=== PATIENT | female | born 1965 | race Caucasian/White ===

== ENCOUNTER → 2024-01-28 | Outpatient (CLI) | payer BC, SELFPAY ==
--- NOTE | 2024-01-28 14:22 | CT_ITS ---
STUDY: LOW DOSE CT LUNG CANCER SCREENING REASON FOR EXAM: Female, 58 years old. Lung cancer screening -- 40 pk yr hx; current smoker;asymptomatic RADIATION DOSAGE (If Supplied By Facility): CTDIvol = ( 2.01 ) mGy, DLP = ( 70.22 ) mGycm TECHNIQUE: No contrast was administered. Low dose technique was utilized (average mAS-38 and kVp 120). 1.25 mm axial source images with a slice interval of 1.25-mm were reconstructed in lung windows. 2.5 mm axial source images with a slice interval of 2.5-mm were reconstructed in lung windows. 5.0 mm axial source images with a slice interval of 5.0-mm were reconstructed in soft tissue windows. COMPARISON: Comparison is made with prior study dated December 07, 2005. Mildly enlarged thyroid gland. NODULES: There is a 3.7 mm partially calcified granuloma in the medial aspect of the lingular segment of the left upper lobe as seen on axial image #175. Emphysema: Hyperinflation. Mild degree of emphysematous changes. Endobronchial lesion: None Aorta: Minimal atherosclerotic plaque formation of the aortic arch. CORONARY ARTERIES: Coronary artery calcification is seen. Heart: Unremarkable Pulmonary artery: Unremarkable Mediastinal nodes: Small mediastinal lymph nodes. Other chest and abdominal findings: CT/Low Dose CT Lung Screening IMPRESSION: Lung-RADS category 2 - Continue annual screening with LDCT in 12 months. IMPORTANT NOTES FOR USE: ACR Lung-RADS Version 1.1 Assessment Categories Release Date: 2018 Category: Coded 0-4 bases on nodule(s) with highest degree of suspicion. Negative screen is defined as categories 1 and 2; a positive screen is defined as categories 3 and 4. Category 3 and 4A nodules that are unchanged on interval CT should be coded as category 2, and individuals returned to screening in 12 months. Category 4X: Category 3 or 4 nodules with additional imaging findings that increase the suspicion of lung cancer, such as spiculation, GGN that doubles in size in 1 year, enlarged lymph notes, etc. Category Modifiers: S (significant finding unrelated to lung cancer) Electronically Signed: Jhonatan Monzon MD at 15:19 EST ,
--- OUTSIDE RECORDS SUMMARY | 2024-01-28 22:55 | XMS RPT_ITS | CCD ---
Author Name Unknown Address [address] [place] [address] Organization [facility] Care Team Providers Care Power Generation Plant Operator Name Role Phone MansuraRafa brown Primary Care Provider Buster Salas MD Primary Care Provider Buster Salas MD Primary Care Provider Buster Salas MD Primary Care Provider [phone] Buster Salas MD Primary Care Provider KASSIE MACKAY Attending Unavailable BUSTER SALAS Primary Care Unavailable BUSTER SALAS Primary Care Unavailable BUSTER SALAS Primary Care Unavailable KASSIE MACKAY Attending Unavailable KASSIE MACKAY Attending Unavailable BUSTER SALAS Primary Care Unavailable KASSIE MACKAY Attending Unavailable BUSTER SALAS Primary Care Unavailable Medications Current Medications Medication Drug Class(es) Dates Sig (Normalized) Sig (Original) azithromycin 250 mg oral tablet (2 sources) Macrolide Antimicrobial Start: 12-20-2022 End: 12-25-2022 azithromycin (ZITHROMAX Z-JOSE F) 250 mg tablet Indications: Sinobronchitis Take 2 tablets day one, then, 1 tablet daily until gone. 6 tablet 0 12/20/2022 12/25/2022 Active Completed/Discontinued Medications Medication Drug Class(es) Dates Sig (Normalized) Sig (Original) benzonatate 100 mg oral capsule (13 sources) Non-narcotic Antitussive Start: 07-27-2022 take 1 capsule by mouth three times daily as needed for cough benzonatate (TESSALON PERLES) 100 mg capsule Indications: Bronchitis Take 1 capsule by mouth three times daily as needed for cough. 20 capsule 1 07/27/2022 Active Problems Active Problems Problem Classification Problem Date Documented Da te Episodic/Chronic Anxiety disorders (19 sources) Mixed anxiety and depressive disorder; Translations: [Other specified anxiety disorders] Onset: 07-05-2021 Chronic Other injuries and conditions due to external causes (2 sources) Muscle strain; Translations: [Other injury of unspecified body region, initial encounter] Episodic Other nutritional; endocrine; and metabolic disorders (1 source) Overweight in adulthood with body mass index of 25 or more but less than 30; Translations: [Overweight] Episodic Other screening for suspected conditions (not mental disorders or infectious disease) (4 sources) Patient encounter status; Translations: [Encounter for screening mammogram for malignant neoplasm of breast] Episodic Other upper respiratory infections (1 source) Chronic sinusitis; Translations: [Chronic sinusitis, unspecified] Chronic Spondylosis; intervertebral disc disorders; other back problems (1 source) Cervical radiculopathy; Translations: [Cervical radiculopathy] Chronic Substance-related disorders (14 sources) Smoker; Translations: [Nicotine dependence, unspecified, uncomplicated] Onset: 07-05-2021 07-05-2021 Chronic Urinary tract infections (1 source) Acute cystitis; Translations: [Acute cystitis with hematuria] Episodic Past or Other Problems Problem Classification Problem Date Documented Da te Episodic/Chronic Other nutritional; endocrine; and metabolic disorders (14 sources) Overweight; Translations: [Overweight] Onset: 07-05-2021 07-05-2021 Episodic Other nutritional; endocrine; and metabolic disorders (1 source) Overweight; Translations: [Overweight with body mass index (BMI) of 27 to 27.9 in adult] Onset: 05-02-2023 Episodic Other nutritional; endocrine; and metabolic disorders (1 source) Body mass index (BMI) 27.0-27.9, adult; Translations: [Overweight with body mass index (BMI) of 27 to 27.9 in adult] Onset: 05-02-2023 Episodic Results Test Name Value Interpretation Reference Range Facil ity Vital Signs Date Time Vital Sign Value Performing Clinician Janae alcazar 07-11-2023 11:43-0400 Body weight 73.94 kg Kassie Mackay APRN.CNP Work Phone: [facility] 07-11-2023 11:43-0400 Diastolic blood pressure 70 mm[Hg] Kassie Mackay APRN.EXPERIMENTAL MACHINIST Work Phone: [facility] 07-11-2023 11:43-0400 Heart rate 83 /min Kassie Tannhof HARDWARE INSTALLER.EXPERIMENTAL MACHINIST Work Phone: [facility] 07-11-2023 11:43-0400 Respiratory rate 16 /min Kassie Tannhof HARDWARE INSTALLER.EXPERIMENTAL MACHINIST Work Phone: [facility] 07-11-2023 11:43-0400 SaO2% (BldA) [Mass fraction] 96 % Kassie Tannhof HARDWARE INSTALLER.EXPERIMENTAL MACHINIST Work Phone: [facility] 07-11-2023 11:43-0400 Systolic blood pressure 110 mm[Hg] Kassie Tannhof HARDWARE INSTALLER.EXPERIMENTAL MACHINIST Work Phone: [facility] 06-03-2023 09:57-0400 Body weight 74.84 kg Kassie Tannhof HARDWARE INSTALLER.EXPERIMENTAL MACHINIST Work Phone: [facility] 06-03-2023 09:57-0400 Diastolic blood pressure 80 mm[Hg] Kassie Tannhof HARDWARE INSTALLER.EXPERIMENTAL MACHINIST Work Phone: [facility] 06-03-2023 09:57-0400 Heart rate 72 /min Kassie Tannhof HARDWARE INSTALLER.EXPERIMENTAL MACHINIST Work Phone: [facility] 06-03-2023 09:57-0400 Respiratory rate 16 /min Kassie Tannhof HARDWARE INSTALLER.EXPERIMENTAL MACHINIST Work Phone: [facility] 06-03-2023 09:57-0400 SaO2% (BldA) [Mass fraction] 97 % Kassie Tannhof HARDWARE INSTALLER.EXPERIMENTAL MACHINIST Work Phone: [facility] 06-03-2023 09:57-0400 Systolic blood pressure 114 mm[Hg] Kassie Tannhof HARDWARE INSTALLER.EXPERIMENTAL MACHINIST Work Phone: [facility] 05-02-2023 12:33-0400 Body weight 78.47 kg Kassie Tannhof HARDWARE INSTALLER.EXPERIMENTAL MACHINIST Work Phone: [facility] 05-02-2023 12:33-0400 Diastolic blood pressure 70 mm[Hg] Kassie Tannhof HARDWARE INSTALLER.EXPERIMENTAL MACHINIST Work Phone: [facility] 05-02-2023 12:33-0400 Heart rate 72 /min Kassie Tannhof HARDWARE INSTALLER.EXPERIMENTAL MACHINIST Work Phone: [facility] 05-02-2023 12:33-0400 Respiratory rate 16 /min Kassie Tannhof HARDWARE INSTALLER.EXPERIMENTAL MACHINIST Work Phone: [facility] 05-02-2023 12:33-0400 SaO2% (BldA) [Mass fraction] 97 % Kassie Tannhof HARDWARE INSTALLER.EXPERIMENTAL MACHINIST Work Phone: [facility] 05-02-2023 12:33-0400 Systolic blood pressure 110 mm[Hg] Kassie Tannhof HARDWARE INSTALLER.EXPERIMENTAL MACHINIST Work Phone: [facility] 01-30-2023 10:05-0500 Body weight 78.02 kg Kassie Tannhof HARDWARE INSTALLER.EXPERIMENTAL MACHINIST Work Phone: [facility] 01-30-2023 10:05-0500 Diastolic blood pressure 76 mm[Hg] Kassie Tannhof HARDWARE INSTALLER.EXPERIMENTAL MACHINIST Work Phone: [facility] 01-30-2023 10:05-0500 Heart rate 74 /min Kassie Tannhof HARDWARE INSTALLER.EXPERIMENTAL MACHINIST Work Phone: [facility] 01-30-2023 10:05-0500 Respiratory rate 16 /min Kassie Tannhof HARDWARE INSTALLER.EXPERIMENTAL MACHINIST Work Phone: [facility] 01-30-2023 10:05-0500 SaO2% (BldA) [Mass fraction] 97 % Kassie Tannhof HARDWARE INSTALLER.EXPERIMENTAL MACHINIST Work Phone: [facility] 01-30-2023 10:05-0500 Systolic blood pressure 98 mm[Hg] Kassie Tannhof HARDWARE INSTALLER.EXPERIMENTAL MACHINIST Work Phone: [facility] 12-20-2022 12:48-0500 Body temperature 98.1 [degF] Kassie Tannhof HARDWARE INSTALLER.EXPERIMENTAL MACHINIST Work Phone: [facility] 12-20-2022 12:48-0500 Body weight 78.02 kg Kassie Tannhof HARDWARE INSTALLER.EXPERIMENTAL MACHINIST Work Phone: [facility] 12-20-2022 12:48-0500 Diastolic blood pressure 80 mm[Hg] Kassie Tannhof HARDWARE INSTALLER.EXPERIMENTAL MACHINIST Work Phone: [facility] 12-20-2022 12:48-0500 Heart rate 72 /min Kassie Tannhof HARDWARE INSTALLER.EXPERIMENTAL MACHINIST Work Phone: [facility] 12-20-2022 12:48-0500 Respiratory rate 16 /min Kassie Tannhof HARDWARE INSTALLER.EXPERIMENTAL MACHINIST Work Phone: [facility] 12-20-2022 12:48-0500 SaO2% (BldA) [Mass fraction] 97 % Kassie Tannhof HARDWARE INSTALLER.EXPERIMENTAL MACHINIST Work Phone: [facility] 12-20-2022 12:48-0500 Systolic blood pressure 110 mm[Hg] Kassie Tannhof HARDWARE INSTALLER.EXPERIMENTAL MACHINIST Work Phone: [facility] 08-22-2022 09:49-0400 Body weight 77.11 kg Kassie Tannhof HARDWARE INSTALLER.EXPERIMENTAL MACHINIST Work Phone: [facility] 08-22-2022 09:49-0400 Diastolic blood pressure 76 mm[Hg] Kassie Tannhof HARDWARE INSTALLER.EXPERIMENTAL MACHINIST Work Phone: [facility] 08-22-2022 09:49-0400 Heart rate 74 /min Kassie Tannhof HARDWARE INSTALLER.EXPERIMENTAL MACHINIST Work Phone: [facility] 08-22-2022 09:49-0400 Respiratory rate 16 /min Kassie Tannhof HARDWARE INSTALLER.EXPERIMENTAL MACHINIST Work Phone: [facility] 08-22-2022 09:49-0400 SaO2% (BldA) [Mass fraction] 97 % Kassie Tannhof HARDWARE INSTALLER.EXPERIMENTAL MACHINIST Work Phone: [facility] 08-22-2022 09:49-0400 Systolic blood pressure 118 mm[Hg] Kassie Tannhof HARDWARE INSTALLER.EXPERIMENTAL MACHINIST Work Phone: [facility] 05-07-2022 14:48-0400 Body weight 76.66 kg Buster Salas MD Work Phone: [facility] 05-07-2022 14:48-0400 Diastolic blood pressure 76 mm[Hg] Buster Salas MD Work Phone: [facility] 05-07-2022 14:48-0400 Heart rate 66 /min Buster Salas MD Work Phone: [facility] 05-07-2022 14:48-0400 SaO2% (BldA) [Mass fraction] 97 % Buster Salas MD Work Phone: [facility] 05-07-2022 14:48-0400 Systolic blood pressure 118 mm[Hg] Buster Salas MD Work Phone: [facility] 08-19-2019 12:35-0400 BP Diastolic 67 mm[Hg] [facility] 08-19-2019 12:35-0400 BP Systolic 112 mm[Hg] [facility] 08-19-2019 12:35-0400 Pulse (Heart Rate) 74 /min [facility] 08-19-2019 12:35-0400 Pulse Oximetry 97 % [facility] 08-19-2019 12:35-0400 Respiratory Rate 18 /min [facility] 08-19-2019 10:10-0400 Height 170.2 cm [facility] 08-19-2019 10:09-0400 Body Temperature 98.2 [degF] [facility] Encounters Encounter Date Encounter Type Care Provider Facility Start: 08-14-2023 Telephone encounter Lupe Osman APRN.EXPERIMENTAL MACHINIST Work Phone: [facility] Procedures Date Procedure Procedure Detail Performing Clinician Start: 06-03-2023 Urnls dip stick/tabl et rgnt auto w/o microscopy Kassie Mackay APRN.CNP Work Phone: Start: 12-15-2021 Mammography Buster diallo MD Work Phone: Start: 08-19-2019 Assay of magnesium Alex K Gonsales Work Phone: Start: 08-19-2019 Assay of troponin quantitative Alex Gonsales Work Phone: Start: 08-19-2019 CBC, EDIF, PLATELET Alberto Gonsales Work Phone: Start: 08-19-2019 Comprehensive metabo lic panel Alex Gonsales Work Phone: Start: 08-19-2019 Standard ECG Alex miller Work Phone: Plan of Treatment Date Care Activity Detail Author Start: 12-15-2026 HPV TESTING HPV TESTING [facility] Start: 12-15-2026 PAP TESTING PAP TESTING [facility] Start: 08-02-2023 Influenza vaccination [facility] Start: 06-03-2023 End: 08-03-2023 PAIN PANEL, UR QUANT [facility] Fo undation Work Phone: Immunizations Immunization Date Immunization Notes Care Provider Fa madeleine 10-02-2021 influenza, injectabl e, quadrivalent, contains preservative Buster Salas MD Work Phone: [facility] Work Phone: 10-02-2021 influenza virus vaccine, unspecified formulation Lupe Osman APRN.CNP Work Phone: [facility] Payers Date Payer Category Payer Unknown [id number] 2021 Private Health Insurance [employer] [id number] 2021-Present [phone] [address] [place] [address] O [id number] 2021 Private Health Insurance [employer] [id number] 2021-Present [phone] [address] [place] [address] O [id number] 2021 Unknown [id number] 2019 Unknown JOHNATHAN MANN HM O PPO POS xxxxxxxxxxxx 2019-Present xxxxxxxxxxxx [id number] 2018 Unknown [id number] 2018 Unknown [id number] Social History Date Type Detail Facility Start: 07-05-1986 End: 07-27-2022 Tobacco smoking status NHIS Current every day smoker [facility] Start: 08-19-2019 End: 07-05-2021 Alcohol intake Yes [facility] Start: 1965 Sex Assigned At Not on file [facility] Start: 07-05-1986 History of tobacco use Cigarette Smo ker [facility] Start: 07-05-2021 End: 10-10-2021 Cigarettes smoked current (pack per day) - Reported 1 [facility] Start: 07-05-2021 End: 07-27-2022 Tobacco use and exposure Smokeless tobacco non-user [facility] Start: 05-07-2022 End: 08-13-2023 Alcohol intake Ex-drinker (finding) [facility] Start: 10-10-2021 History SDOH Alcohol Frequency 1 [facility] Start: 10-10-2021 History SDOH Alcohol Std Drinks 98 [facility] Start: 10-10-2021 History SDOH Social Connections Phone 5 [facility] Start: 10-10-2021 History SDOH Social Connections Get Together 3 [facility] Start: 10-10-2021 History SDOH Social Connections Membership 2 [facility] Start: 10-10-2021 History SDOH Physica l Activity DPW 0 [facility] Start: 12-15-2021 Education 21 [facility] Start: 04-27-2022 End: 08-22-2022 Exposure to SARS-CoV-2 (event) Not sure [facility] How often do you att end sabianism or judaism services? Patient refused [facility] Do you belong to any clubs or organizations such as sabianism groups, unions, fraternal or athletic groups, or school groups? No [facility] Are you now , , , , never or living with a partner? [facility] How often to you hav e a drink containing alcohol? Never [facility] Do you feel stress - tense, restless, nervous, or anxious, or unable to sleep at night because your mind is troubled all the time - these days [OSQ] Only a little [facility] (I/We) worried wheth er (my/our) food would run out before (I/we) got money to buy more. Never true [facility] Clinical Notes 05-07-2022 to 01-08-2024 Telephone Encounter - Allison Astudillo MA - 08/14/2023 7:16 PM EDTTelephone Encounter - Lupe Osman APRN.EXPERIMENTAL MACHINIST - 08/14/2023 7:09 PM EDTPatient InstructionsPatient Instructions Note Date & Type Note Facility 01-08-2024 Note Patient Outreach (IN [facility]) SONIA HOPSON ([id number]) 1965 F Date Time Provider Department 01/08/24 BUSTER SALAS During your visit today, we recorded the following information about you: Allergies As of Date: 01/08/2024 (No Known Allergies) Date Reviewed: 08/13/2023 Reviewed by: Yocasta Zacarias - Fully Assessed Visit Diagnosis:Encounter for screening mammogram for breast cancer [Z12.31] Order(s):[facility] SCREENING [[id number]] Order #: [id number] FUTURE Prescriptions as of 01/13/2024 - venlafaxine ER (EFFEXOR XR) 37.5 mg 24 hr capsule Take 1 capsule by mouth once daily. - benzonatate (TESSALON PERLES) 100 mg capsule Take 1 capsule by mouth three times daily as needed for cough. - folic acid/multivit-min/lutein (CENTRUM SILVER ORAL) Take by mouth. Problem List As Of Date 01/08/2024 Noted Resolved Smoker [F17.200] 07/05/2021 Anxiety with depression [F41.8] 07/05/2021 Overweight [E66.3] 07/05/2021 Encounter Status:Closed by JAM PAINTER on 01/13/24 [facility] 08-14-2023 Miscellaneous Notes Formattin g of this note might be different from the original. Patient notified of results, verbalized understanding of instructions given. Allison Astudillo MA Please call patient let her know that the urine culture is not completely done growing but E. coli was present. Patient was called in Macrobid for the time being if the sensitivity shows that we need to change it we will change at that time. documented in this encounter [facility] 08-13-2023 Note HNO ID: [id number] Author: Lupe Osman APRN.SOULEYMANE Service: ? Author Type: Nurse Practitioner Type: Progress Notes Filed: 08/13/2023 9:56 AM Note Text: CC: Patient presents with: Urinary Frequency: pelvic pressure x 1 week HPI Sonia Hopson is a 57 year old female who presents with complaint of possible UTI. These symptoms have been present for 7 days. Associated symptoms: frequency and pressure Denies: backpain, fever, chills, sweats, abdominal pain, and flank pain, risk of STD. Treatments: nothing The ROS was otherwise negative. PMH, Medications, labs, allergies, and recent past visits with PCP were reviewed and updated as able. PHYSICAL EXAM: BP 106/64 Pulse 84 Temp 36.6 ?C (97.9 ?F) Resp 16 Wt 73.9 kg (163 lb) SpO2 95% BMI 26.31 kg/m? General: Well appearing and alert CV: Regular rate and rhythm without obvious murmur Lungs: clear to auscultation bilaterally Back: straight and symmetric Abdomen: soft, nontender, nondistended PAST MEDICAL HISTORY Diagnosis Date NEGATIVE MEDICAL HISTORY PAST SURGICAL HISTORY Procedure Laterality Date NONE ALLERGIES Patient has no known allergies. MEDICATIONS Phentermine HCl 37.5 mg tablet Take 1 tablet by mouth once daily for 60 days. venlafaxine ER (EFFEXOR XR) 37.5 mg 24 hr capsule Take 1 capsule by mouth once daily. (Patient not taking: Reported on 08/13/2023) benzonatate (TESSALON PERLES) 100 mg capsule Take 1 capsule by mouth three times daily as needed for cough. (Patient not taking: Reported on 08/22/2022) folic acid/multivit-min/lutein (CENTRUM SILVER ORAL) Take by mouth. (Patient not taking: Reported on 08/22/2022) FAMILY HISTORY Problem Relation Age of Onset Heart Attack Mother 61 Emphysema Father 73 smoker Heart Attack Sister 64 Depression Sister Ovarian cancer Sister Depression Sister Heart Brother Diabetes Paternal Grandmother Heart disease Paternal Grandmother Social History Tobacco Use Smoking status: Every Day Packs/day: 1.00 Years: 35.00 Additional pack years: 0.00 Total pack years: 35.00 Types: Cigarettes Start date: 07/05/1986 Smokeless tobacco: Never Vaping Use Vaping Use: Never used Substance Use Topics Alcohol use: Not Currently Drug use: Never ASSESSMENT/PLAN: 1. Urinary frequency - ICD9: 788.41, ICD10: R35.0 - UA DIP, URINE (POC) - URINE CULTURE No treatment at this time. Prescription instructions reviewed with patient as applicable. Potential red flag symptoms discussed with the patient. Reviewed appropriate action plan to take if red flag symptoms occur. Patient agreeable to treatment plan. Will follow up with PCP if symptoms do not get better. Lupe Osman APRN.EXPERIMENTAL MACHINIST [facility] 07-11-2023 Note HNO ID: [id number] Author: Kassie Mackay APRN.SOULEYMANE Service: ? Author Type: Nurse Practitioner Type: Progress Notes Filed: 07/11/2023 1:43 PM Note Text: This is a 57 year old female who presents today with: Patient presents with: Follow Up HISTORY OF PRESENT ILLNESS: Sonia Hopson is a 57 year old female. Patient presents with: Follow Up Here for weight check, but not due for 2 more months. Last weight in June was 165 lbs, had a 5% reduction from initiation of Adipex. Has been trying to eat healthy and stay active. Weight today 163 lbs. denies any difficulty sleeping or palpitations. PAST MEDICAL HISTORY: PAST MEDICAL HISTORY Diagnosis Date NEGATIVE MEDICAL HISTORY PAST SURGICAL HISTORY Procedure Laterality Date NONE ALLERGIES Patient has no known allergies. MEDICATIONS Current Outpatient Medications Medication Sig venlafaxine ER (EFFEXOR XR) 37.5 mg 24 hr capsule Take 1 capsule by mouth once daily. benzonatate (TESSALON PERLES) 100 mg capsule Take 1 capsule by mouth three times daily as needed for cough. (Patient not taking: Reported on 08/22/2022) folic acid/multivit-min/lutein (CENTRUM SILVER ORAL) Take by mouth. (Patient not taking: Reported on 08/22/2022) No current facility-administered medications for this visit. FAMILY HISTORY Problem Relation Age of Onset Heart Attack Mother 61 Emphysema Father 73 smoker Heart Attack Sister 64 Depression Sister Ovarian cancer Sister Depression Sister Heart Brother Diabetes Paternal Grandmother Heart disease Paternal Grandmother Social History Tobacco Use Smoking status: Every Day Packs/day: 1.00 Years: 35.00 Total pack years: 35.00 Types: Cigarettes Start date: 07/05/1986 Smokeless tobacco: Never Vaping Use Vaping Use: Never used Substance Use Topics Alcohol use: Not Currently Drug use: Never REVIEW OF SYSTEMS GENERAL: No weight loss, malaise or fevers/chills HEENT: Negative for frequent or significant headaches, No changes in hearing or vision. NECK: Negative for lumps, goiter, pain and significant neck swelling RESPIRATORY: Negative for cough, hemoptysis, wheezing, dyspnea or shortness of breath CARDIOVASCULAR: Negative for chest pain, leg swelling, orthopnea, or palpitations GI: No nausea, vomiting, or diarrhea/constipation. No hematochezia/melena. No heartburn or reflux symptoms. : No history of dysuria, frequency or incontinence MUSCULOSKELETAL: Negative for joint pain or swelling. SKIN: Negative for lesions, rash, and itching ENDOCRINE: Negative for cold or heat intolerance, polyuria, polydipsia and goiter NEURO: No history of headaches, syncope, paralysis, seizures or tremors MOOD: Negative for depression, anxiety, or suicidal ideation. EXAM: BP 110/70 Pulse 83 Resp 16 Wt 73.9 kg (163 lb) SpO2 96% BMI 26.31 kg/m? PHYSICAL EXAM: General Appearance: Well appearing, alert, in no acute distress, well-hydrated, well nourished. Skin: Skin color, texture, turgor normal, no suspicious rashes or lesions. Head: Normocephalic, no masses, lesions, tenderness or abnormalities. Eyes: Anicteric sclera. Extraocular movements are intact. Lungs: Lungs clear to auscultation. No wheezing, rhonchi, rales. Heart: RRR without murmur, gallop, or rubs. No ectopy. Extremities: No deformities, edema, skin discoloration, clubbing or cyanosis. Good capillary refill. Peripheral Pulses: Normal, Capillary refill <2secs, strong peripheral pulses, Pulses palpable. Neurologic: Gait normal. Sensation grossly intact. PDMP website checked and validated. All prescriptions have been APPROPRIATELY filled. No suspicious activity was identified. 07/11/2023 by Kassie Mackay APRN.SOULEYMANE ASSESSMENT/PLAN: 1. Encounter for weight management - ICD9: V65.49, ICD10: Z76.89 - Continue to take Phentermine 37.5 mg daily. - Continue to work on eating a well-balanced diet, lean protein, vegetables, and get some form of exercise. - Follow-up in 3 months. - PHENTERMINE 37.5 MG TABLET Follow-up in 3 months or sooner as needed. Discussed treatment plan and patient voices understanding. Patient's questions answered appropriately. Medications and potential side effects were discussed and patient voices understanding. Kassie Mackay APRN.EXPERIMENTAL MACHINIST This note was partially generated using Wizeline voice recognition system. Note was reviewed for accuracy. There may be minor misspellings or grammar miscues with Wizeline voice recognition. [facility] 07-11-2023 Instructions Kassie Mackay APRN.EXPERIMENTAL MACHINIST - 07/11/2023 11:53 AM EDT Continue to take medication as prescribed. Continue to eat a well balanced diet and get some form of exercise. Follow up in 3 months or sooner as needed. documented in this encounter [facility] 07-11-2023 History of Presen t illness Narrative This is a 57 year old female who presents today with: Patient presents with: Follow Up HISTORY OF PRESENT ILLNESS: Sonia Hopson is a 57 year old female. Patient presents with: Follow Up Here for weight check, but not due for 2 more months. Last weight in June was 165 lbs, had a 5% reduction from initiation of Adipex. Has been trying to eat healthy and stay active. Weight today 163 lbs. denies any difficulty sleeping or palpitations. PAST MEDICAL HISTORY: PAST MEDICAL HISTORY Diagnosis Date NEGATIVE MEDICAL HISTORY PAST SURGICAL HISTORY Procedure Laterality Date NONE ALLERGIES Patient has no known allergies. MEDICATIONS Current Outpatient Medications Medication Sig venlafaxine ER (EFFEXOR XR) 37.5 mg 24 hr capsule Take 1 capsule by mouth once daily. benzonatate (TESSALON PERLES) 100 mg capsule Take 1 capsule by mouth three times daily as needed for cough. (Patient not taking: Reported on 08/22/2022) folic acid/multivit-min/lutein (CENTRUM SILVER ORAL) Take by mouth. (Patient not taking: Reported on 08/22/2022) No current facility-administered medications for this visit. FAMILY HISTORY Problem Relation Age of Onset Heart Attack Mother 61 Emphysema Father 73 smoker Heart Attack Sister 64 Depression Sister Ovarian cancer Sister Depression Sister Heart Brother Diabetes Paternal Grandmother Heart disease Paternal Grandmother Social History Tobacco Use Smoking status: Every Day Packs/day: 1.00 Years: 35.00 Total pack years: 35.00 Types: Cigarettes Start date: 07/05/1986 Smokeless tobacco: Never Vaping Use Vaping Use: Never used Substance Use Topics Alcohol use: Not Currently Drug use: Never REVIEW OF SYSTEMS GENERAL: No weight loss, malaise or fevers/chills HEENT: Negative for frequent or significant headaches, No changes in hearing or vision. NECK: Negative for lumps, goiter, pain and significant neck swelling RESPIRATORY: Negative for cough, hemoptysis, wheezing, dyspnea or shortness of breath CARDIOVASCULAR: Negative for chest pain, leg swelling, orthopnea, or palpitations GI: No nausea, vomiting, or diarrhea/constipation. No hematochezia/melena. No heartburn or reflux symptoms. : No history of dysuria, frequency or incontinence MUSCULOSKELETAL: Negative for joint pain or swelling. SKIN: Negative for lesions, rash, and itching ENDOCRINE: Negative for cold or heat intolerance, polyuria, polydipsia and goiter NEURO: No history of headaches, syncope, paralysis, seizures or tremors MOOD: Negative for depression, anxiety, or suicidal ideation. EXAM: BP 110/70 Pulse 83 Resp 16 Wt 73.9 kg (163 lb) SpO2 96% BMI 26.31 kg/m PHYSICAL EXAM: General Appearance: Well appearing, alert, in no acute distress, well-hydrated, well nourished. Skin: Skin color, texture, turgor normal, no suspicious rashes or lesions. Head: Normocephalic, no masses, lesions, tenderness or abnormalities. Eyes: Anicteric sclera. Extraocular movements are intact. Lungs: Lungs clear to auscultation. No wheezing, rhonchi, rales. Heart: RRR without murmur, gallop, or rubs. No ectopy. Extremities: No deformities, edema, skin discoloration, clubbing or cyanosis. Good capillary refill. Peripheral Pulses: Normal, Capillary refill <2secs, strong peripheral pulses, Pulses palpable. Neurologic: Gait normal. Sensation grossly intact. PDMP website checked and validated. All prescriptions have been APPROPRIATELY filled. No suspicious activity was identified. 07/11/2023 by Kassie Mackay APRN.SOULEYMANE ASSESSMENT/PLAN: 1. Encounter for weight management - ICD9: V65.49, ICD10: Z76.89 - Continue to take Phentermine 37.5 mg daily. - Continue to work on eating a well-balanced diet, lean protein, vegetables, and get some form of exercise. - Follow-up in 3 months. - PHENTERMINE 37.5 MG TABLET Follow-up in 3 months or sooner as needed. Discussed treatment plan and patient voices understanding. Patient's questions answered appropriately. Medications and potential side effects were discussed and patient voices understanding. Kassie Mackay APRN.EXPERIMENTAL MACHINIST This note was partially generated using W[employer]eline voice recognition system. Note was reviewed for accuracy. There may be minor misspellings or grammar miscues with [employer]izeline voice recognition. documented in this encounter [facility] 07-04-2023 Miscellaneous Notes Formattin g of this note might be different from the original. Spoke with pt and she has booked apt. Naomie Nichols LPM This will be the start of her 3rd month. I believe she needs a visit for a weight check. I will leave for PCP to decide. Thomas Madison APRN.SOULEYMANE Spoke with pt and she reports at her last visit with Kassie she was told she did not need apt for 3 month. Please review and advise pt. Naomie Nichols LPN Patient has to have a visit for this refill. She is due for weight check for 3rd month. Cannot legally refill. Thomas Madison APRN.SOULEYMANE Patient is asking for tablets so that she can break them in half. Patient has been identified by name and date of : Yes Requested Prescriptions Pending Prescriptions Disp Refills Phentermine HCl (ADIPEX-P) 37.5 mg capsule 30 capsule 0 Sig: Take 1 capsule by mouth once daily for 30 days. BAKARI-06/03/23 Labs-06/03/23 NOV-none RX INSTRUCTIONS: Patient aware RX will be sent to pharmacy. No need to nofity patient. Controlled medication - must be call in. Janell Riddle\ documented in this encounter [facility] 07-04-2023 Miscellaneous Notes Formattin g of this note might be different from the original. Opened in erro documented in this encounter [facility] 06-07-2023 Miscellaneous Notes Formattin g of this note might be different from the original. Patient notified of results, verbalizes understanding of instructions. Blanca Hernandez LPN Can you please call the patient and let her know that her urine culture did come back positive for UTI. I would like her to take antibiotic until finished. Stay well-hydrated throughout the day. Please let me know if she has any questions. Thank you. Kassie Mackay APRN.SOULEYMANE documented in this encounter [facility] 06-03-2023 Note HNO ID: [id number] Author: Kassie Mackay APRN.SOULEYMANE Service: ? Author Type: Nurse Practitioner Type: Progress Notes Filed: 06/03/2023 10:48 AM Note Text: This is a 57 year old female who presents today with: Patient presents with: Follow Up: 1 month for Adipex HISTORY OF PRESENT ILLNESS: Sonia Hopson is a 57 year old female. Patient presents with: Follow Up: 1 month for Adipex Here in the office for 1 month medication check. Last office visit May 02, patient requesting Adipex 37.5 mg. Weight at that time was 173 lbs. Weight today 165 lbs. Has been increasing water intake. Increase in veggies, cutting back on sugars and breads. Walking dog daily. Due for Tox Screen UTI: Odor to urine and bladder pressure for 1 week. No dysuria, hematuria, or increase in frequency. No fever, chills, or abdominal pain. PAST MEDICAL HISTORY: PAST MEDICAL HISTORY Diagnosis Date NEGATIVE MEDICAL HISTORY PAST SURGICAL HISTORY Procedure Laterality Date NONE ALLERGIES Patient has no known allergies. MEDICATIONS Current Outpatient Medications Medication Sig Phentermine HCl 37.5 mg tablet Take 1 tablet by mouth once daily for 30 days. venlafaxine ER (EFFEXOR XR) 37.5 mg 24 hr capsule Take 1 capsule by mouth once daily. benzonatate (TESSALON PERLES) 100 mg capsule Take 1 capsule by mouth three times daily as needed for cough. (Patient not taking: Reported on 08/22/2022) folic acid/multivit-min/lutein (CENTRUM SILVER ORAL) Take by mouth. (Patient not taking: Reported on 08/22/2022) No current facility-administered medications for this visit. FAMILY HISTORY Problem Relation Age of Onset Heart Attack Mother 61 Emphysema Father 73 smoker Heart Attack Sister 64 Depression Sister Ovarian cancer Sister Depression Sister Heart Brother Diabetes Paternal Grandmother Heart disease Paternal Grandmother Social History Tobacco Use Smoking status: Every Day Packs/day: 1.00 Years: 35.00 Pack years: 35.00 Types: Cigarettes Start date: 07/05/1986 Smokeless tobacco: Never Vaping Use Vaping Use: Never used Substance Use Topics Alcohol use: Not Currently Drug use: Never REVIEW OF SYSTEMS GENERAL: No weight loss, malaise or fevers/chills HEENT: Negative for frequent or significant headaches, No changes in hearing or vision. NECK: Negative for lumps, goiter, pain and significant neck swelling RESPIRATORY: Negative for cough, hemoptysis, wheezing, dyspnea or shortness of breath CARDIOVASCULAR: Negative for chest pain, leg swelling, orthopnea, or palpitations GI: No nausea, vomiting, or diarrhea/constipation. No hematochezia/melena. No heartburn or reflux symptoms. : Urine Odor/Pressure MUSCULOSKELETAL: Negative for joint pain or swelling. SKIN: Negative for lesions, rash, and itching ENDOCRINE: Negative for cold or heat intolerance, polyuria, polydipsia and goiter NEURO: No history of headaches, syncope, paralysis, seizures or tremors MOOD: Negative for depression, anxiety, or suicidal ideation. EXAM: BP 114/80 Pulse 72 Resp 16 Wt 74.8 kg (165 lb) SpO2 97% BMI 26.63 kg/m? PHYSICAL EXAM: General Appearance: Well appearing, alert, in no acute distress, well-hydrated, well nourished. Skin: Skin color, texture, turgor normal, no suspicious rashes or lesions. Head: Normocephalic, no masses, lesions, tenderness or abnormalities. Eyes: Anicteric sclera. Extraocular movements are intact. Lungs: Lungs clear to auscultation. No wheezing, rhonchi, rales. Heart: RRR without murmur, gallop, or rubs. No ectopy. Abdomen: Normal abdominal exam, Abdomen soft, non-tender. Bowel sounds normal. No masses, organomegaly, Negative CVA tenderness. Extremities: No deformities, edema, skin discoloration, clubbing or cyanosis. Good capillary refill. Peripheral Pulses: Normal, Capillary refill <2secs, strong peripheral pulses. Neurologic: Gait normal. Sensation grossly intact. UA: Blood, leukocytes. [facility] website checked and validated. All prescriptions have been APPROPRIATELY filled. No suspicious activity was identified. 06/03/2023 by Kassie Mackay APRN.CNP ASSESSMENT/PLAN: 1. Encounter for weight management - ICD9: V65.49, ICD10: Z76.89 (primary diagnosis) - 5% weight loss, will continue medication - Follow up in 3 months. - PHENTERMINE 37.5 MG CAPSULE - TOX SCREEN ROUT UR - PAIN PANEL, UR QUANT 2. Acute cystitis with hematuria - ICD9: 595.0, ICD10: N30.01 - Start Macrobid, take as directed. - Send urine out for culture. - Increase water intake - NITROFURANTOIN MONOHYDRATE AND MACROCRYSTAL 100 MG ORAL CAP - URINE CULTURE Follow-up in 3 months or sooner pending test results. Discussed treatment plan and patient voices understanding. Patient's questions answered appropriately. Medications and potential side effects were discussed and patient voices understanding. Kassie Mackay APRN.CNP This note was partially generated using (more content not included)... [facility] 06-03-2023 Instructions Kassie Mackay APRN.CNP - 06/03/2023 10:10 AM EDT Continue to take all medication as prescribed. Start Macrobid twice daily for 7 days. Urine will be sent off for culture. Stay well hydrated, may use AZO (pyridium) as needed for pain. This will turn the urine orange. Follow up in 3 months or sooner pending test results. documented in this encounter [facility] 06-03-2023 History of Presen t illness Narrative This is a 57 year old female who presents today with: Patient presents with: Follow Up: 1 month for Adipex HISTORY OF PRESENT ILLNESS: Sonia Hopson is a 57 year old female. Patient presents with: Follow Up: 1 month for Adipex Here in the office for 1 month medication check. Last office visit May 02, patient requesting Adipex 37.5 mg. Weight at that time was 173 lbs. Weight today 165 lbs. Has been increasing water intake. Increase in veggies, cutting back on sugars and breads. Walking dog daily. Due for Tox Screen UTI: Odor to urine and bladder pressure for 1 week. No dysuria, hematuria, or increase in frequency. No fever, chills, or abdominal pain. PAST MEDICAL HISTORY: PAST MEDICAL HISTORY Diagnosis Date NEGATIVE MEDICAL HISTORY PAST SURGICAL HISTORY Procedure Laterality Date NONE ALLERGIES Patient has no known allergies. MEDICATIONS Current Outpatient Medications Medication Sig Phentermine HCl 37.5 mg tablet Take 1 tablet by mouth once daily for 30 days. venlafaxine ER (EFFEXOR XR) 37.5 mg 24 hr capsule Take 1 capsule by mouth once daily. benzonatate (TESSALON PERLES) 100 mg capsule Take 1 capsule by mouth three times daily as needed for cough. (Patient not taking: Reported on 08/22/2022) folic acid/multivit-min/lutein (CENTRUM SILVER ORAL) Take by mouth. (Patient not taking: Reported on 08/22/2022) No current facility-administered medications for this visit. FAMILY HISTORY Problem Relation Age of Onset Heart Attack Mother 61 Emphysema Father 73 smoker Heart Attack Sister 64 Depression Sister Ovarian cancer Sister Depression Sister Heart Brother Diabetes Paternal Grandmother Heart disease Paternal Grandmother Social History Tobacco Use Smoking status: Every Day Packs/day: 1.00 Years: 35.00 Pack years: 35.00 Types: Cigarettes Start date: 07/05/1986 Smokeless tobacco: Never Vaping Use Vaping Use: Never used Substance Use Topics Alcohol use: Not Currently Drug use: Never REVIEW OF SYSTEMS GENERAL: No weight loss, malaise or fevers/chills HEENT: Negative for frequent or significant headaches, No changes in hearing or vision. NECK: Negative for lumps, goiter, pain and significant neck swelling RESPIRATORY: Negative for cough, hemoptysis, wheezing, dyspnea or shortness of breath CARDIOVASCULAR: Negative for chest pain, leg swelling, orthopnea, or palpitations GI: No nausea, vomiting, or diarrhea/constipation. No hematochezia/melena. No heartburn or reflux symptoms. : Urine Odor/Pressure MUSCULOSKELETAL: Negative for joint pain or swelling. SKIN: Negative for lesions, rash, and itching ENDOCRINE: Negative for cold or heat intolerance, polyuria, polydipsia and goiter NEURO: No history of headaches, syncope, paralysis, seizures or tremors MOOD: Negative for depression, anxiety, or suicidal ideation. EXAM: BP 114/80 Pulse 72 Resp 16 Wt 74.8 kg (165 lb) SpO2 97% BMI 26.63 kg/m PHYSICAL EXAM: General Appearance: Well appearing, alert, in no acute distress, well-hydrated, well nourished. Skin: Skin color, texture, turgor normal, no suspicious rashes or lesions. Head: Normocephalic, no masses, lesions, tenderness or abnormalities. Eyes: Anicteric sclera. Extraocular movements are intact. Lungs: Lungs clear to auscultation. No wheezing, rhonchi, rales. Heart: RRR without murmur, gallop, or rubs. No ectopy. Abdomen: Normal abdominal exam, Abdomen soft, non-tender. Bowel sounds normal. No masses, organomegaly, Negative CVA tenderness. Extremities: No deformities, edema, skin discoloration, clubbing or cyanosis. Good capillary refill. Peripheral Pulses: Normal, Capillary refill <2secs, strong peripheral pulses. Neurologic: Gait normal. Sensation grossly intact. UA: Blood, leukocytes. PDMP website checked and validated. All prescriptions have been APPROPRIATELY filled. No suspicious activity was identified. 06/03/2023 by Kassie Mackay APRN.EXPERIMENTAL MACHINIST ASSESSMENT/PLAN: 1. Encounter for weight management - ICD9: V65.49, ICD10: Z76.89 (primary diagnosis) - 5% weight loss, will continue medication - Follow up in 3 months. - PHENTERMINE 37.5 MG CAPSULE - TOX SCREEN ROUT UR - PAIN PANEL, UR QUANT 2. Acute cystitis with hematuria - ICD9: 595.0, ICD10: N30.01 - Start Macrobid, take as directed. - Send urine out for culture. - Increase water intake - NITROFURANTOIN MONOHYDRATE & MACROCRYSTAL 100 MG ORAL CAP - URINE CULTURE Follow-up in 3 months or sooner pending test results. Discussed treatment plan and patient voices understanding. Patient's questions answered appropriately. Medications and potential side effects were discussed and patient voices understanding. Kassie Mackay APRN.CNP This note was partially generated using W[employer]eline voice recognition system. Note was reviewed for accuracy. There may be minor misspellings or grammar miscues with [employer]eline voice recognition. documented in this encounter [facility] 05-02-2023 Note HNO ID: [id number] Author: Kassie Mackay APRN.CNP Service: ? Author Type: Nurse Practitioner Type: Progress Notes Filed: 05/02/2023 1:57 PM Note Text: This is a 57 year old female who presents today with: Patient presents with: Acute Visit: weight loss HISTORY OF PRESENT ILLNESS: Sonia Hopson is a 57 year old female. Patient presents with: Acute Visit: weight loss Here in the office to discuss weight loss. Has taken adipex in the past several years ago. Refers that she has been gaining weight in the past 6 months. Walking dog daily. Trying to eat well balanced diet, getting fruit and salad. Not tracking calories. BMI currently 27.92. PAST MEDICAL HISTORY: PAST MEDICAL HISTORY Diagnosis Date NEGATIVE MEDICAL HISTORY PAST SURGICAL HISTORY Procedure Laterality Date NONE ALLERGIES Patient has no known allergies. MEDICATIONS Current Outpatient Medications Medication Sig venlafaxine ER (EFFEXOR XR) 37.5 mg 24 hr capsule Take 1 capsule by mouth once daily. benzonatate (TESSALON PERLES) 100 mg capsule Take 1 capsule by mouth three times daily as needed for cough. (Patient not taking: Reported on 08/22/2022) folic acid/multivit-min/lutein (CENTRUM SILVER ORAL) Take by mouth. (Patient not taking: Reported on 08/22/2022) No current facility-administered medications for this visit. FAMILY HISTORY Problem Relation Age of Onset Heart Attack Mother 61 Emphysema Father 73 smoker Heart Attack Sister 64 Depression Sister Ovarian cancer Sister Depression Sister Heart Brother Diabetes Paternal Grandmother Heart disease Paternal Grandmother Social History Tobacco Use Smoking status: Every Day Packs/day: 1.00 Years: 35.00 Pack years: 35.00 Types: Cigarettes Start date: 07/05/1986 Smokeless tobacco: Never Vaping Use Vaping Use: Never used Substance Use Topics Alcohol use: Not Currently Drug use: Never REVIEW OF SYSTEMS GENERAL: No weight loss, malaise or fevers/chills HEENT: Negative for frequent or significant headaches, No changes in hearing or vision. NECK: Negative for lumps, goiter, pain and significant neck swelling RESPIRATORY: Negative for cough, hemoptysis, wheezing, dyspnea or shortness of breath CARDIOVASCULAR: Negative for chest pain, leg swelling, orthopnea, or palpitations GI: No nausea, vomiting, or diarrhea/constipation. No hematochezia/melena. No heartburn or reflux symptoms. : No history of dysuria, frequency or incontinence MUSCULOSKELETAL: Negative for joint pain or swelling. SKIN: Negative for lesions, rash, and itching ENDOCRINE: Negative for cold or heat intolerance, polyuria, polydipsia and goiter NEURO: No history of headaches, syncope, paralysis, seizures or tremors MOOD: Negative for depression, anxiety, or suicidal ideation. EXAM: BP 110/70 Pulse 72 Resp 16 Wt 78.5 kg (173 lb) SpO2 97% BMI 27.92 kg/m? PHYSICAL EXAM: General Appearance: Well appearing, alert, in no acute distress, well-hydrated, well nourished. Skin: Skin color, texture, turgor normal, no suspicious rashes or lesions. Head: Normocephalic, no masses, lesions, tenderness or abnormalities. Eyes: Anicteric sclera. Extraocular movements are intact. Extremities: No deformities, edema, skin discoloration, clubbing or cyanosis. Good capillary refill. Peripheral Pulses: Normal, Capillary refill <2secs, strong peripheral pulses, Pulses palpable. Neurologic: Gait normal. Sensation grossly intact. ASSESSMENT/PLAN: 1. Overweight with body mass index (BMI) of 27 to 27.9 in adult - ICD9: 278.02, V85.23, ICD10: E66.3, Z68.27 Newly diagnosed - Add Phentermine - PHENTERMINE 37.5 MG TABLET - Medication education and instructions discussed. - Instructed to work on lifestyle changes at home, increase protein, vegetables, get some form of exercise. - Recommend tracking food. - Follow-up in 1 month. Follow-up in 1 month or sooner as needed. Discussed treatment plan and patient voices understanding. Patient's questions answered appropriately. Medications and potential side effects were discussed and patient voices understanding. Kassie Mackay APRN.EXPERIMENTAL MACHINIST This note was partially generated using Dragon voice recognition system. Note was reviewed for accuracy. There may be minor misspellings or grammar miscues with [employer] voice recognition. [facility] 05-02-2023 Instructions Kassie Mackay APRN.CNP - 05/02/2023 12:51 PM EDT Start Adipex once daily. Continue to work on eating a well balanced diet. Try to decreased processed foods. Increase water and get some form of exercise. Recommend tracking food for a couple days. Follow up in 1 month for weight check or earlier as needed. SmartPill phone [place]. documented in this encounter [facility] 05-02-2023 History of Presen t illness Narrative This is a 57 year old female who presents today with: Patient presents with: Acute Visit: weight loss HISTORY OF PRESENT ILLNESS: Sonia Hopson is a 57 year old female. Patient presents with: Acute Visit: weight loss Here in the office to discuss weight loss. Has taken adipex in the past several years ago. Refers that she has been gaining weight in the past 6 months. Walking dog daily. Trying to eat well balanced diet, getting fruit and salad. Not tracking calories. BMI currently 27.92. PAST MEDICAL HISTORY: PAST MEDICAL HISTORY Diagnosis Date NEGATIVE MEDICAL HISTORY PAST SURGICAL HISTORY Procedure Laterality Date NONE ALLERGIES Patient has no known allergies. MEDICATIONS Current Outpatient Medications Medication Sig venlafaxine ER (EFFEXOR XR) 37.5 mg 24 hr capsule Take 1 capsule by mouth once daily. benzonatate (TESSALON PERLES) 100 mg capsule Take 1 capsule by mouth three times daily as needed for cough. (Patient not taking: Reported on 08/22/2022) folic acid/multivit-min/lutein (CENTRUM SILVER ORAL) Take by mouth. (Patient not taking: Reported on 08/22/2022) No current facility-administered medications for this visit. FAMILY HISTORY Problem Relation Age of Onset Heart Attack Mother 61 Emphysema Father 73 smoker Heart Attack Sister 64 Depression Sister Ovarian cancer Sister Depression Sister Heart Brother Diabetes Paternal Grandmother Heart disease Paternal Grandmother Social History Tobacco Use Smoking status: Every Day Packs/day: 1.00 Years: 35.00 Pack years: 35.00 Types: Cigarettes Start date: 07/05/1986 Smokeless tobacco: Never Vaping Use Vaping Use: Never used Substance Use Topics Alcohol use: Not Currently Drug use: Never REVIEW OF SYSTEMS GENERAL: No weight loss, malaise or fevers/chills HEENT: Negative for frequent or significant headaches, No changes in hearing or vision. NECK: Negative for lumps, goiter, pain and significant neck swelling RESPIRATORY: Negative for cough, hemoptysis, wheezing, dyspnea or shortness of breath CARDIOVASCULAR: Negative for chest pain, leg swelling, orthopnea, or palpitations GI: No nausea, vomiting, or diarrhea/constipation. No hematochezia/melena. No heartburn or reflux symptoms. : No history of dysuria, frequency or incontinence MUSCULOSKELETAL: Negative for joint pain or swelling. SKIN: Negative for lesions, rash, and itching ENDOCRINE: Negative for cold or heat intolerance, polyuria, polydipsia and goiter NEURO: No history of headaches, syncope, paralysis, seizures or tremors MOOD: Negative for depression, anxiety, or suicidal ideation. EXAM: BP 110/70 Pulse 72 Resp 16 Wt 78.5 kg (173 lb) SpO2 97% BMI 27.92 kg/m PHYSICAL EXAM: General Appearance: Well appearing, alert, in no acute distress, well-hydrated, well nourished. Skin: Skin color, texture, turgor normal, no suspicious rashes or lesions. Head: Normocephalic, no masses, lesions, tenderness or abnormalities. Eyes: Anicteric sclera. Extraocular movements are intact. Extremities: No deformities, edema, skin discoloration, clubbing or cyanosis. Good capillary refill. Peripheral Pulses: Normal, Capillary refill <2secs, strong peripheral pulses, Pulses palpable. Neurologic: Gait normal. Sensation grossly intact. ASSESSMENT/PLAN: 1. Overweight with body mass index (BMI) of 27 to 27.9 in adult - ICD9: 278.02, V85.23, ICD10: E66.3, Z68.27 Newly diagnosed - Add Phentermine - PHENTERMINE 37.5 MG TABLET - Medication education and instructions discussed. - Instructed to work on lifestyle changes at home, increase protein, vegetables, get some form of exercise. - Recommend tracking food. - Follow-up in 1 month. Follow-up in 1 month or sooner as needed. Discussed treatment plan and patient voices understanding. Patient's questions answered appropriately. Medications and potential side effects were discussed and patient voices understanding. Kassie Mackay APRN.CNP This note was partially generated using [employer] voice recognition system. Note was reviewed for accuracy. There may be minor misspellings or grammar miscues with [employer] voice recognition. documented in this encounter [facility] 03-01-2023 Miscellaneous Notes Formattin g of this note might be different from the original. Pt notified via edupristine that Effexor should have refills at [facility]. Eneida Cueto Ma Effexor was refilled #30 with 3 refills on 01/30/23 to [facility]. Message left for pt to call back. Eneida Cueto Ma Patient has been identified by name and date of : Yes, Provider [facility] Patient phones for refill(s): Requested Prescriptions Pending Prescriptions Disp Refills venlafaxine ER (EFFEXOR XR) 37.5 mg 24 hr capsule 30 capsule 3 Sig: Take 1 capsule by mouth once daily. Date of last office visit in primary care: 01/30/23 Last 2 Encounter Wt Readings: Date: Wt: 01/30/2023 78 kg (172 lb) 12/20/2022 78 kg (172 lb) Previous labs/tests for medication: Not applicable Please advise. Thank you. Kassie Teague documented in this encounter [facility] 01-30-2023 Note HNO ID: [id number] Author: Kassie Mackay APRN.CNP Service: ? Author Type: Nurse Practitioner Type: Progress Notes Filed: 01/30/2023 12:13 PM Note Text: This is a 57 year old female who presents today with: Patient presents with: Acute Visit: Discuss zoloft change HISTORY OF PRESENT ILLNESS: Sonia Hopson is a 57 year old female. Patient presents with: Acute Visit: Discuss zoloft change Here in the office to discuss switching zolof. History of anxiety with depression. Currently taking Zoloft 50 mg daily. Refers that she stopped medication about 3 days ago. Refers that medication was not helpful. Started it initially when her brother passed. Refers she does not want to leave the house, getting anxiety at the grocery store. History of panic attacks in the past. No SI/HI. Sleeping well without any problems. PAST MEDICAL HISTORY: PAST MEDICAL HISTORY Diagnosis Date NEGATIVE MEDICAL HISTORY PAST SURGICAL HISTORY Procedure Laterality Date NONE ALLERGIES Patient has no known allergies. MEDICATIONS Current Outpatient Medications Medication Sig sertraline (ZOLOFT) 50 mg tablet Take 1 tablet by mouth once daily. benzonatate (TESSALON PERLES) 100 mg capsule Take 1 capsule by mouth three times daily as needed for cough. (Patient not taking: Reported on 08/22/2022) folic acid/multivit-min/lutein (CENTRUM SILVER ORAL) Take by mouth. (Patient not taking: Reported on 08/22/2022) No current facility-administered medications for this visit. FAMILY HISTORY Problem Relation Age of Onset Heart Attack Mother 61 Emphysema Father 73 smoker Heart Attack Sister 64 Depression Sister Ovarian cancer Sister Depression Sister Heart Brother Diabetes Paternal Grandmother Heart disease Paternal Grandmother Social History Tobacco Use Smoking status: Every Day Packs/day: 1.00 Years: 35.00 Pack years: 35.00 Types: Cigarettes Start date: 07/05/1986 Smokeless tobacco: Never Vaping Use Vaping Use: Never used Substance Use Topics Alcohol use: Not Currently Drug use: Never REVIEW OF SYSTEMS GENERAL: No weight loss, malaise or fevers/chills HEENT: Negative for frequent or significant headaches, No changes in hearing or vision. NECK: Negative for lumps, goiter, pain and significant neck swelling RESPIRATORY: Negative for cough, hemoptysis, wheezing, dyspnea or shortness of breath CARDIOVASCULAR: Negative for chest pain, leg swelling, orthopnea, or palpitations GI: No nausea, vomiting, or diarrhea/constipation. No hematochezia/melena. No heartburn or reflux symptoms. : No history of dysuria, frequency or incontinence MUSCULOSKELETAL: Negative for joint pain or swelling. SKIN: Negative for lesions, rash, and itching ENDOCRINE: Negative for cold or heat intolerance, polyuria, polydipsia and goiter NEURO: No history of headaches, syncope, paralysis, seizures or tremors MOOD: + Anxiety EXAM: BP 98/76 Pulse 74 Resp 16 Wt 78 kg (172 lb) SpO2 97% BMI 27.76 kg/m? PHYSICAL EXAM: General Appearance: Well appearing, alert, in no acute distress, well-hydrated, well nourished. Skin: Skin color, texture, turgor normal, no suspicious rashes or lesions. Head: Normocephalic, no masses, lesions, tenderness or abnormalities. Eyes: Anicteric sclera. Extraocular movements are intact. Lungs: Lungs clear to auscultation. No wheezing, rhonchi, rales. Heart: RRR without murmur, gallop, or rubs. No ectopy. Extremities: No deformities, edema, skin discoloration, clubbing or cyanosis. Good capillary refill. Peripheral Pulses: Normal, Capillary refill <2secs, strong peripheral pulses, Pulses palpable. Neurologic: Gait normal. Sensation grossly intact. Mood: Pleasant, good eye contact, engaged. ASSESSMENT/PLAN: 1. Anxiety with depression - ICD9: 300.4, ICD10: F41.8 - Start Effexor XR 37.35 daily. - Medication education and instructions provided. - Recommend establishing care with counselor. - Follow-up in 1 month - VENLAFAXINE ER 37.5 MG CAPSULE,EXTENDED RELEASE 24 HR Follow-up in 1 month or sooner as needed. Discussed treatment plan and patient voices understanding. Patient's questions answered appropriately. Medications and potential side effects were discussed and patient voices understanding. Kassie Mackay APRN.EXPERIMENTAL MACHINIST This note was partially generated using Wizeline voice recognition system. Note was reviewed for accuracy. There may be minor misspellings or grammar miscues with Wizeline voice recognition. [facility] 01-30-2023 Instructions Kassie Mackay APRN.SOULEYMANE - 01/30/2023 10:29 AM EST Start Effexor 37.5 mg daily. Recommend establishing care with counselor as needed. Work on relaxation techniques at home. Follow up in 1 month or sooner as needed. This may be virtual or phone visit if needed. documented in this encounter [facility] 01-30-2023 History of Presen t illness Narrative This is a 57 year old female who presents today with: Patient presents with: Acute Visit: Discuss zoloft change HISTORY OF PRESENT ILLNESS: Sonia Hopson is a 57 year old female. Patient presents with: Acute Visit: Discuss zoloft change Here in the office to discuss switching zolof. History of anxiety with depression. Currently taking Zoloft 50 mg daily. Refers that she stopped medication about 3 days ago. Refers that medication was not helpful. Started it initially when her brother passed. Refers she does not want to leave the house, getting anxiety at the grocery store. History of panic attacks in the past. No SI/HI. Sleeping well without any problems. PAST MEDICAL HISTORY: PAST MEDICAL HISTORY Diagnosis Date NEGATIVE MEDICAL HISTORY PAST SURGICAL HISTORY Procedure Laterality Date NONE ALLERGIES Patient has no known allergies. MEDICATIONS Current Outpatient Medications Medication Sig sertraline (ZOLOFT) 50 mg tablet Take 1 tablet by mouth once daily. benzonatate (TESSALON PERLES) 100 mg capsule Take 1 capsule by mouth three times daily as needed for cough. (Patient not taking: Reported on 08/22/2022) folic acid/multivit-min/lutein (CENTRUM SILVER ORAL) Take by mouth. (Patient not taking: Reported on 08/22/2022) No current facility-administered medications for this visit. FAMILY HISTORY Problem Relation Age of Onset Heart Attack Mother 61 Emphysema Father 73 smoker Heart Attack Sister 64 Depression Sister Ovarian cancer Sister Depression Sister Heart Brother Diabetes Paternal Grandmother Heart disease Paternal Grandmother Social History Tobacco Use Smoking status: Every Day Packs/day: 1.00 Years: 35.00 Pack years: 35.00 Types: Cigarettes Start date: 07/05/1986 Smokeless tobacco: Never Vaping Use Vaping Use: Never used Substance Use Topics Alcohol use: Not Currently Drug use: Never REVIEW OF SYSTEMS GENERAL: No weight loss, malaise or fevers/chills HEENT: Negative for frequent or significant headaches, No changes in hearing or vision. NECK: Negative for lumps, goiter, pain and significant neck swelling RESPIRATORY: Negative for cough, hemoptysis, wheezing, dyspnea or shortness of breath CARDIOVASCULAR: Negative for chest pain, leg swelling, orthopnea, or palpitations GI: No nausea, vomiting, or diarrhea/constipation. No hematochezia/melena. No heartburn or reflux symptoms. : No history of dysuria, frequency or incontinence MUSCULOSKELETAL: Negative for joint pain or swelling. SKIN: Negative for lesions, rash, and itching ENDOCRINE: Negative for cold or heat intolerance, polyuria, polydipsia and goiter NEURO: No history of headaches, syncope, paralysis, seizures or tremors MOOD: + Anxiety EXAM: BP 98/76 Pulse 74 Resp 16 Wt 78 kg (172 lb) SpO2 97% BMI 27.76 kg/m PHYSICAL EXAM: General Appearance: Well appearing, alert, in no acute distress, well-hydrated, well nourished. Skin: Skin color, texture, turgor normal, no suspicious rashes or lesions. Head: Normocephalic, no masses, lesions, tenderness or abnormalities. Eyes: Anicteric sclera. Extraocular movements are intact. Lungs: Lungs clear to auscultation. No wheezing, rhonchi, rales. Heart: RRR without murmur, gallop, or rubs. No ectopy. Extremities: No deformities, edema, skin discoloration, clubbing or cyanosis. Good capillary refill. Peripheral Pulses: Normal, Capillary refill <2secs, strong peripheral pulses, Pulses palpable. Neurologic: Gait normal. Sensation grossly intact. Mood: Pleasant, good eye contact, engaged. ASSESSMENT/PLAN: 1. Anxiety with depression - ICD9: 300.4, ICD10: F41.8 - Start Effexor XR 37.35 daily. - Medication education and instructions provided. - Recommend establishing care with counselor. - Follow-up in 1 month - VENLAFAXINE ER 37.5 MG CAPSULE,EXTENDED RELEASE 24 HR Follow-up in 1 month or sooner as needed. Discussed treatment plan and patient voices understanding. Patient's questions answered appropriately. Medications and potential side effects were discussed and patient voices understanding. Kassie Mackay APRN.EXPERIMENTAL MACHINIST This note was partially generated using Yapta recognition system. Note was reviewed for accuracy. There may be minor misspellings or grammar miscues with Dragon voice recognition. documented in this encounter [facility] 01-16-2023 Note Patient Outreach (IN [facility]) SONAI HOPSON ([id number]) 1965 F Date Time Provider Department 01/16/23 BUSTER SALAS During your visit today, we recorded the following information about you: Allergies As of Date: 01/16/2023 (No Known Allergies) Date Reviewed: 12/20/2022 Reviewed by: Kassie Mackay APRN.CNP - Fully Assessed Visit Diagnosis:Encounter for screening mammogram for breast cancer [Z12.31] Order(s):[facility] SCREENING [[id number]] Order #: [id number] FUTURE Prescriptions as of 01/21/2023 - sertraline (ZOLOFT) 50 mg tablet Take 1 tablet by mouth once daily. - benzonatate (TESSALON PERLES) 100 mg capsule Take 1 capsule by mouth three times daily as needed for cough. - folic acid/multivit-min/lutein (CENTRUM SILVER ORAL) Take by mouth. Problem List As Of Date 01/16/2023 Noted Resolved Smoker [F17.200] 07/05/2021 Anxiety with depression [F41.8] 07/05/2021 Overweight [E66.3] 07/05/2021 Encounter Status:Closed by [employer], [employer] on 01/21/23 [facility] 12-20-2022 Instructions Kassie Mackay APRN.EXPERIMENTAL MACHINIST - 12/20/2022 1:05 PM EST Start zpack for sinus infection, take with food. May use over the counter cold and cough medications as needed for symptoms. Flu/Covid will be back tomorrow. Stay well hydrated, get rest. Follow up pending tests or sooner as needed. May consider Mucinex D for sinus/Chest congestion, ask pharmacist. documented in this encounter [facility] 12-20-2022 History of Presen t illness Narrative This is a 57 year old female who presents today with: Patient presents with: Acute Visit: cough congestion HISTORY OF PRESENT ILLNESS: Sonia Hopson is a 57 year old female. Patient presents with: Acute Visit: cough congestion Here in the office for cough and sinus congestion. Symptoms started 5 days ago. Cough is productive at times. Having SOB with activity, improves with rest. Increase in nasal discharge which is clear. Using cough lozenges and night time cough medication. No fever. 1 negative covid test on Saturday. Back pain: Upper left back pain started yesterday. Pain is constant ache but improves with tylenol. PAST MEDICAL HISTORY: PAST MEDICAL HISTORY Diagnosis Date NEGATIVE MEDICAL HISTORY PAST SURGICAL HISTORY Procedure Laterality Date NONE ALLERGIES Patient has no known allergies. MEDICATIONS Current Outpatient Medications Medication Sig benzonatate (TESSALON PERLES) 100 mg capsule Take 1 capsule by mouth three times daily as needed for cough. (Patient not taking: Reported on 08/22/2022) sertraline (ZOLOFT) 50 mg tablet Take 1 tablet by mouth once daily. folic acid/multivit-min/lutein (CENTRUM SILVER ORAL) Take by mouth. (Patient not taking: Reported on 08/22/2022) No current facility-administered medications for this visit. FAMILY HISTORY Problem Relation Age of Onset Heart Attack Mother 61 Emphysema Father 73 smoker Heart Attack Sister 64 Depression Sister Ovarian cancer Sister Depression Sister Heart Brother Diabetes Paternal Grandmother Heart disease Paternal Grandmother Social History Tobacco Use Smoking status: Every Day Packs/day: 1.00 Years: 35.00 Pack years: 35.00 Types: Cigarettes Start date: 07/05/1986 Smokeless tobacco: Never Vaping Use Vaping Use: Never used Substance Use Topics Alcohol use: Not Currently Drug use: Never REVIEW OF SYSTEMS GENERAL: No weight loss, malaise or fevers/chills HEENT: + Sinus Congestion NECK: Negative for lumps, goiter, pain and significant neck swelling RESPIRATORY: + Cough/SOB CARDIOVASCULAR: Negative for chest pain, leg swelling, orthopnea, or palpitations GI: No nausea, vomiting, or diarrhea/constipation. No hematochezia/melena. No heartburn or reflux symptoms. : No history of dysuria, frequency or incontinence MUSCULOSKELETAL: + Left upper Back Pain SKIN: Negative for lesions, rash, and itching ENDOCRINE: Negative for cold or heat intolerance, polyuria, polydipsia and goiter NEURO: No history of headaches, syncope, paralysis, seizures or tremors MOOD: Negative for depression, anxiety, or suicidal ideation. EXAM: BP 110/80 Pulse 72 Temp 36.7 C (98.1 F) (Left Tympanic) Resp 16 Wt 78 kg (172 lb) SpO2 97% BMI 27.76 kg/m PHYSICAL EXAM: General Appearance: Ill appearing, alert, in no acute distress, well-hydrated, well nourished. Head: Normocephalic, no masses, lesions, tenderness or abnormalities. Eyes: Anicteric sclera. Extraocular movements are intact. Ears: External ears normal, canals clear. TMs pearly muir. Nose/Sinuses: Nares normal, septum midline, mucosa erythematic, no drainage. + Maxillary sinus tenderness Oropharynx: Lips, mucosa, and tongue normal, teeth and gums normal, oropharynx normal. Neck: Supple, no adenopathy; thyroid symmetric, normal size, no bruits. Lungs: Lungs clear to auscultation. No wheezing, rhonchi, rales. Heart: RRR without murmur, gallop, or rubs. No ectopy. Extremities: No deformities, edema, skin discoloration, clubbing or cyanosis. Good capillary refill. Musculoskeletal: + Left Upper back tenderness with palpation, muscle tension noted,no color change noted. Peripheral Pulses: Normal, Capillary refill <2secs, strong peripheral pulses, Pulses palpable. Neurologic: Gait normal. Sensation grossly intact. ASSESSMENT/PLAN: 1. Sinobronchitis - ICD9: 473.9, 490, ICD10: J32.9, J40 (primary diagnosis) - Will begin treatment with Zithromax pack as directed - Supportive care with plenty of fluids, rest, and analgesia prn. - Can use [id number] cold and cough medication as needed for symptom management. - Denied wanting an albuterol inhaler for SOB. - COVID WITH FLUA+B, ROUTINE - AZITHROMYCIN 250 MG TABLET 2. Muscle strain - ICD9: 848.9, ICD10: T14.8XXA - May continue with tylenol as needed. - May apply heat to the area. 3. Anxiety with depression - ICD9: 300.4, ICD10: F41.8 - Refill provided. - Stable - SERTRALINE 50 MG TABLET Follow-up pending test results or sooner as needed Discussed treatment plan and patient voices understanding. Patient's questions answered appropriately. Medications and potential side effects were discussed and patient voices understanding. Kassie Mackay APRN.CNP This note was partially generated using Wizeline voice recognition system. Note was reviewed for accuracy. There may be minor misspellings or grammar miscues with Wizeline voice recognition. documented in this encounter [facility] 08-22-2022 Instructions Kassie Mackay APRN.CNP - 08/22/2022 10:10 AM EDT 1.) Start the prednisone taper, take with food. 2.) may use Zanaflex as needed for muscle tension. May make you sleepy. 3.) Recommend massage therapy and heat/ice to the area. 4.) If pain does not improve please follow up. documented in this encounter [facility] 08-22-2022 History of Presen t illness Narrative This is a 56 year old female who presents today with: Patient presents with: Acute Visit: left neck, arm and shoulder pain HISTORY OF PRESENT ILLNESS: Sonia Hopson is a 56 year old female. Patient presents with: Acute Visit: left neck, arm and shoulder pain Here in the office for left-sided neck pain. Pain started about 2 weeks ago, thought she slept wrong but pain seemed progress. Pain is throb, ache, and sharp at times that is constant. Pain radiates into her shoulder and arm, with some numbness/tingling into the thumb. No Injury to the area. Difficulty gripping and dexterity. Has been using tylenol, ibuprofen 400 mg, and heat. PAST MEDICAL HISTORY: PAST MEDICAL HISTORY Diagnosis Date NEGATIVE MEDICAL HISTORY PAST SURGICAL HISTORY Procedure Laterality Date NONE ALLERGIES Patient has no known allergies. MEDICATIONS Current Outpatient Medications Medication Sig benzonatate (TESSALON PERLES) 100 mg capsule Take 1 capsule by mouth three times daily as needed for cough. sertraline (ZOLOFT) 50 mg tablet Take 1 tablet by mouth once daily. folic acid/multivit-min/lutein (CENTRUM SILVER ORAL) Take by mouth. No current facility-administered medications for this visit. FAMILY HISTORY Problem Relation Age of Onset Heart Attack Mother 61 Emphysema Father 73 smoker Heart Attack Sister 64 Depression Sister Ovarian cancer Sister Depression Sister Heart Brother Diabetes Paternal Grandmother Heart disease Paternal Grandmother Social History Tobacco Use Smoking status: Every Day Packs/day: 1.00 Years: 35.00 Pack years: 35.00 Types: Cigarettes Start date: 07/05/1986 Smokeless tobacco: Never Vaping Use Vaping Use: Never used Substance Use Topics Alcohol use: Not Currently Drug use: Never REVIEW OF SYSTEMS GENERAL: No weight loss, malaise or fevers/chills HEENT: Negative for frequent or significant headaches, No changes in hearing or vision. NECK: Negative for lumps, goiter, pain and significant neck swelling RESPIRATORY: Negative for cough, hemoptysis, wheezing, dyspnea or shortness of breath CARDIOVASCULAR: Negative for chest pain, leg swelling, orthopnea, or palpitations GI: No nausea, vomiting, or diarrhea/constipation. No hematochezia/melena. No heartburn or reflux symptoms. : No history of dysuria, frequency or incontinence MUSCULOSKELETAL: + Left sided neck pain SKIN: Negative for lesions, rash, and itching ENDOCRINE: Negative for cold or heat intolerance, polyuria, polydipsia and goiter NEURO: No history of headaches, syncope, paralysis, seizures or tremors + numbness in left thumb MOOD: Negative for depression, anxiety, or suicidal ideation. EXAM: BP 118/76 Pulse 74 Resp 16 Wt 77.1 kg (170 lb) SpO2 97% BMI 27.44 kg/m PHYSICAL EXAM: General Appearance: Well appearing, alert, in no acute distress, well-hydrated, well nourished. Skin: Skin color, texture, turgor normal, no suspicious rashes or lesions. Head: Normocephalic, no masses, lesions, tenderness or abnormalities. Eyes: Anicteric sclera. Extraocular movements are intact. Lungs: Lungs clear to auscultation. No wheezing, rhonchi, rales. Heart: RRR without murmur, gallop, or rubs. No ectopy. Extremities: No deformities, edema, skin discoloration, clubbing or cyanosis. Good capillary refill. Musculoskeletal: + Cervical tenderness noted with palpation. Decreased ROM of Neck, increase in numbness in thumb with neck flexion. Muscle tension noted in left scalene and bicep. Peripheral Pulses: Normal, Capillary refill <2secs, strong peripheral pulses, Pulses palpable. Neurologic: Gait normal. Reflexes normal and symmetric. Sensation grossly intact. ASSESSMENT/PLAN: 1. Muscle strain - ICD9: 848.9, ICD10: T14.8XXA - Symptoms consistent for a muscle strain with nerve compression. - Start Prednisone taper. - May use Zanaflex as needed for muscle tension. - Recommend heat and massage therapy. - If pain does not improve may need xray. - Medication education and instructions discussed. - PREDNISONE 10 MG TABLET - TIZANIDINE 4 MG TABLET Follow-up as needed or sooner if symptoms get worse or do not improve. Discussed treatment plan and patient voices understanding. Patient's questions answered appropriately. Medications and potential side effects were discussed and patient voices understanding. Kassie Mackay APRN.SOULEYMANE This note was partially generated using Wizeline voice recognition system. Note was reviewed for accuracy. There may be minor misspellings or grammar miscues with Wizeline voice recognition. documented in this encounter [facility] 07-27-2022 Miscellaneous Notes Formattin g of this note might be different from the original. Noted Buster Salas MD Pt called in and reports she got stuck in traffic on 30 coming here from work and would be about 10 min late for her appointment. documented in this encounter [facility] 05-07-2022 History of Presen t illness Narrative Chief Complaint No chief complaint on file. HPI Sonia Hopson is a 56 year old female who presents here today for depression. Pt here today to discuss depression. Has had increased stress, in family, etc. Finds that she is crying more, irritable, lack of motivation, binge eating. No suicidal thoughts. Positive family history of depression - sisters and daughters. Was on lexapro in the past for 3 months, not sure how effective. Wellbutrin did not do much for her. Past medical history, appointments, medications, allergies reviewed. Previous Medical History PAST MEDICAL HISTORY Diagnosis Date NEGATIVE MEDICAL HISTORY Previous Surgical History PAST SURGICAL HISTORY Procedure Laterality Date NONE Family History FAMILY HISTORY Problem Relation Age of Onset Heart Attack Mother 61 Emphysema Father 73 smoker Heart Attack Sister 64 Depression Sister Ovarian cancer Sister Depression Sister Diabetes Paternal Grandmother Heart disease Paternal Grandmother Patient Allergies ALLERGIES No Known Allergies Current Medications Current Outpatient Medications on File Prior to Visit Medication Sig buPROPion SR (WELLBUTRIN SR) 150 mg 12 hr tablet Take 1 tablet by mouth twice daily. (Patient not taking: Reported on 12/15/2021 ) No current facility-administered medications on file prior to visit. Social History Social History Tobacco Use Smoking status: Current Every Day Smoker Packs/day: 1.00 Years: 35.00 Pack years: 35.00 Types: Cigarettes Start date: 07/05/1986 Smokeless tobacco: Never Used Vaping Use Vaping Use: Never used Substance Use Topics Alcohol use: Not Currently Drug use: Never EXAM: There were no vitals taken for this visit. General Appearance: Well appearing, alert, in no acute distress, well-hydrated, well nourished.. Lungs: Lungs clear to auscultation. No wheezing, rhonchi, rales.. Heart: RRR without murmur, gallop, or rubs. No ectopy. Health Maintenance List PNEUMOCOCCAL(1 - PCV) Never done DTAP,TDAP,TD(1 - Tdap) Never done LIPID SCREEN Never done DIABETES SCREEN Never done COLORECTAL CANCER SCREENING Never done LUNG CANCER SCREENING Never done SHINGRIX VACCINE(1 of 2) Never done HEPATITIS C SCREENING due on 08/04/2022 HIV SCREENING due on 08/04/2022 COVID-19 VACCINE(1) due on 08/04/2022 MAMMOGRAM due on 12/15/2022 PAP TESTING due on 12/15/2026 HPV TESTING due on 12/15/2026 INFLUENZA Completed Data reviewed None ASSESSMENT/PLAN: 1. Anxiety with depression - ICD9: 300.4, ICD10: F41.8 Start zoloft 25 mg daily - SERTRALINE 25 MG TABLET Follow up in 1 month Medical Decision Making: Problems: Moderate: 1+ chronic illnesses with change Risk: Moderate: Drug management Medical Decision Making Level: 4 - Moderate Buster Salas MD documented in this encounter [facility]* Diagnosis Muscle strain- Primary Unspecified site of sprain and strain documented in this encounter [facility] note* Diagnosis Sinobronchitis- Primary Unspecified sinusitis (chronic) Muscle strain Unspecified site of sprain and strain Anxiety with depression documented in this encounter [facility] note* Diagnosis Encounter for screening mammogram for breast cancer documented in this encounter [facility] note* Diagnosis Anxiety with depression- Primary documented in this encounter [facility] note* Diagnosis Anxiety with depression documented in this encounter [facility] note* Diagnosis Overweight with body mass index (BMI) of 27 to 27.9 in adult- Primary documented in this encounter [facility] note* Diagnosis Encounter for weight management- Primary Acute cystitis with hematuria Acute cystitis documented in this encounter [facility] note* Diagnosis Encounter for weight management documented in this encounter [facility] note* Diagnosis Encounter for weight management- Primary documented in this encounter [facility] for referral (narrative)* Diagnostic Procedure Only (Routine) - Pending Review Specialty Diagnoses / Procedures Referred By Dalia t Referred To Contact [facility] Diagnoses Encounter for screening mammogram for breast cancer Procedures CHAN SCREENING SCREENING MAMMOGRAPHY BI 2-VIEW BREAST INC CAD Buster Salas MD [address] [place] [address] [facility] [address] [place] [address] Referral ID Status Reason Start Date Expiration Date Visits Requested Visits Authorized [id number] Pending Review Auto-Generat ed Referral 01/16/2023 02/15/2024 [facility] Reason for Referral Status Reason Specialty Diagnoses / Procedures Referre d By Contact Referred To Contact Closed Procedures ECG Alex Gonsales MD [address] [place] [address] Discharge Instructions * Attachments The following attachments cannot be sent through Care Everywhere. * Cervical Radiculopathy (Eritrean) documented in this encounter Assessments Diagnosis Cervical radiculopathy- Primary Brachial neuritis or radiculitis nos Summary Purpose Family History No Family History Records FoundNo Family History Records FoundNo Family History Records Found Advance Directives No Advanced Directives Records FoundNo Advanced Directives Records FoundNo Advanced Directives Records Found Additional Source Comments Reason for Visit (unrecogniz ed section and content) Reason Comments Depression with anxiety. Brothe r a couple weeks ago Weight Problem asking for Adipex ag ain Reason Comments Appointment Reason Comments Acute Visit left neck, arm and s houlder pain Reason Comments Acute Visit cough congestion Reason Comments Acute Visit Discuss zoloft frazier e Reason Onset Date Comments Refill Request 02/28/2023 Reason Comments Acute Visit weight loss Reason Comments Follow Up 1 month for Adipex Reason Comments Results Urine Reason Onset Date Comments Refill Request 07/04/2023 Reason Onset Date Comments Refill Request 07/03/2023 Reason Comments Follow Up Reason Comments Results INFORMATION SOURCE (unrecogn ized section and content) DATE CREATED AUTHOR AUTHOR'S ORGANIZ ATION 02/18/2020 [facility] ([place]) DATE CREATED AUTHOR AUTHOR'S ORGANIZ ATION 01/13/2024 [facility] Source Comments (unrecognize d section and content) In the event this informatio n is protected by the Federal Confidentiality of Alcohol and Drug Abuse Patient Records regulations: The Federal rules restrict any use of the information to criminally investigate or prosecute any alcohol or drug abuse patient.[facility] the event this information is protected by the Federal Confidentiality of Alcohol and Drug Abuse Patient Records regulations: The Federal rules restrict any use of the information to criminally investigate or prosecute any alcohol or drug abuse patient.[facility] the event this information is protected by the Federal Confidentiality of Alcohol and Drug Abuse Patient Records regulations: The Federal rules restrict any use of the information to criminally investigate or prosecute any alcohol or drug abuse patient.[facility] the event this information is protected by the Federal Confidentiality of Alcohol and Drug Abuse Patient Records regulations: The Federal rules restrict any use of the information to criminally investigate or prosecute any alcohol or drug abuse patient.[facility] the event this information is protected by the Federal Confidentiality of Alcohol and Drug Abuse Patient Records regulations: The Federal rules restrict any use of the information to criminally investigate or prosecute any alcohol or drug abuse patient.[facility] the event this information is protected by the Federal Confidentiality of Alcohol and Drug Abuse Patient Records regulations: The Federal rules restrict any use of the information to criminally investigate or prosecute any alcohol or drug abuse patient.[facility] the event this information is protected by the Federal Confidentiality of Alcohol and Drug Abuse Patient Records regulations: The Federal rules restrict any use of the information to criminally investigate or prosecute any alcohol or drug abuse patient.[facility] the event this information is protected by the Federal Confidentiality of Alcohol and Drug Abuse Patient Records regulations: The Federal rules restrict any use of the information to criminally investigate or prosecute any alcohol or drug abuse patient.[facility] the event this information is protected by the Federal Confidentiality of Alcohol and Drug Abuse Patient Records regulations: The Federal rules restrict any use of the information to criminally investigate or prosecute any alcohol or drug abuse patient.[facility] the event this information is protected by the Federal Confidentiality of Alcohol and Drug Abuse Patient Records regulations: The Federal rules restrict any use of the information to criminally investigate or prosecute any alcohol or drug abuse patient.[facility] the event this information is protected by the Federal Confidentiality of Alcohol and Drug Abuse Patient Records regulations: The Federal rules restrict any use of the information to criminally investigate or prosecute any alcohol or drug abuse patient.[facility] the event this information is protected by the Federal Confidentiality of Alcohol and Drug Abuse Patient Records regulations: The Federal rules restrict any use of the information to criminally investigate or prosecute any alcohol or drug abuse patient.[facility] the event this information is protected by the Federal Confidentiality of Alcohol and Drug Abuse Patient Records regulations: The Federal rules restrict any use of the information to criminally investigate or prosecute any alcohol or drug abuse patient.[facility] the event this information is protected by the Federal Confidentiality of Alcohol and Drug Abuse Patient Records regulations: The Federal rules restrict any use of the information to criminally investigate or prosecute any alcohol or drug abuse patient.[facility] Care Teams (unrecognized sec tion and content) [employer] Relationship Specialty Start Date End Date Buster Salas MD [address] [place] [address] PCP - General Family Practice 07/05/21 [employer] Relationship Specialty Start Date End Date Buster Salas MD [address] [place] [address] PCP - General Family Medicine 07/05/21 [employer] Relationship Specialty Start Date End Date Buster Salas MD [address] [place] [address] PCP - General Family Medicine 07/05/21 [employer] Relationship Specialty Start Date End Date Buster Salas MD [address] [place] [address] PCP - General Family Medicine 07/05/21 [employer] Relationship Specialty Start Date End Date Buster Salas MD [address] [place] [address] PCP - General Family Medicine 07/05/21 [employer] Relationship Specialty Start Date End Date Buster Salas MD [address] [place] [address] PCP - General Family Medicine 07/05/21 [employer] Relationship Specialty Start Date End Date Buster Salas MD [address] [place] [address] PCP - General Family Medicine 07/05/21 [employer] Relationship Specialty Start Date End Date Buster Salas MD [address] [place] [address] PCP - General Family Medicine 07/05/21 [employer] Relationship Specialty Start Date End Date Buster Salas MD [address] [place] [address] PCP - General Family Medicine 07/05/21 [employer] Relationship Specialty Start Date End Date Buster Salas MD [address] [place] [address] PCP - General Family Medicine 07/05/21 [employer] Relationship Specialty Start Date End Date Buster Salas MD [address] [place] [address] PCP - General Family Medicine 07/05/21 [employer] Relationship Specialty Start Date End Date Buster Salas MD [address] [place] [address] PCP - General Family Medicine 07/05/21 FOR RECORDS PERTAINING TO PATIENTS WHO ARE OR HAVE BEEN ENROLLED IN A CHEMICAL DEPENDENCY/SUBSTANCEABUSE PROGRAM, SOME INFORMATION MAY BE OMITTED. This clinical summary was aggregated from multiple sources. Caution should be exercised in using it in the provision of clinical care. This summary normalizes information from multiple sources, and as a consequence, information in this document may materially change the coding, format and clinical context of patient data. In addition, data may be omitted in some cases. CLINICAL DECISIONS SHOULD BE BASED ON THE PRIMARY CLINICAL RECORDS. [facility]. provides no warranty or guarantee of the accuracy or completeness of information in this document.
== END | disposition home or self-care (01) ==
LOC: CT 14:21
PROVIDERS: PCP Nurse Practitioner Family; Referring Provider Nurse Practitioner Family; Visit Provider Nurse Practitioner Family
DX: Z12.2 Encounter for screening for malignant neoplasm of respiratory organs (principal); Z87.891 Personal history of nicotine dependence
CPT/HCPCS: 71271

== ENCOUNTER → 2024-06-26 | Outpatient (CLI) | payer BC, SELFPAY ==
[2024-06-26 09:51] LABS: Hematocrit 46.6 % (37-47); Hemoglobin 15.3 g/dL (12.0-15.0); Mean Corp Hgb Conc 32.8 g/dL (32-36); Mean Corpuscular Hgb 29.2 pg (27.0-32.0); Mean Corpuscular Volume 88.9 fL (81-99); Mean Platelet Vol. 11.8 fl (6.2-12.0); Platelet Count 241 K/mm3 (150-450); RBC Distribution Width CV 13.2 % (11.6-14.6); RBC Distribution Width SD 43.1 fl (35.1-43.9); Red Blood Count 5.24 M/mm3 (4.2-5.4); White Blood Count 7.8 K/mm3 (4.4-11.0)
[2024-06-26 10:34] LABS: ALB/GLOB Ratio 0.9 RATIO (0.9-2.4); AST(SGOT) 18 U/L (15-37); Alanine Aminotransfer ALT/SGPT 15 U/L (13-56); Albumin, Serum 3.8 g/dL (3.2-5.0); Alkaline Phosphatase 96 U/L (45-117); Anion Gap 4 (5-15); BUN 11 mg/dL (7-18); BUN/Creat Ratio 12.9 RATIO (10-20); Calcium,Total 9.3 mg/dL (8.5-10.1); Chloride 108 mmol/L (98-107); Cholesterol 238 mg/dL (200); Creatinine, Serum 0.85 mg/dL (0.55-1.02); EST Glomerular Filtration Rate 73 mL/min (>60); Est Glom Filt Rate - Afr Amer 88 mL/min (>60); Free T3 3.2 pg/mL (2.18-3.98); Globulin 4.1 g/dL (2.2-4.2); Glucose 106 mg/dL (74-106); High Density Lipoprotein 60 mg/dL; Potassium 4.1 mmol/L (3.5-5.1); Protein, Total 7.9 g/dL (6.4-8.2); Sodium Level 138 mmol/L (136-145); T4 Free Direct 0.97 ng/dL (0.76-1.46); Thyroid Stim Hormone (TSH) 2.61 uIU/mL (0.358-3.74); Triglycerides 119 mg/dL; Very Low Density Lipoprotein 24 mg/dL (5-40)
[2024-06-26 10:36] LABS: Hemoglobin A1c 5.3 % (3.8-5.6)
[2024-07-01 19:07] LABS: T3 Reverse 16.6 ng/dL (9.2-24.1); Thyroid Peroxidase AB 10 IU/mL (0-34)
== END | disposition home or self-care (01) ==
LOC: LAB 09:36
PROVIDERS: PCP Nurse Practitioner Family; Visit Provider Registered Nurse
DX: G47.09 Other insomnia (principal); R53.82 Chronic fatigue, unspecified; R63.5 Abnormal weight gain; G31.84 Mild cognitive impairment of uncertain or unknown etiology; E23.0 Hypopituitarism
CPT/HCPCS: 36415; 80053; 80061; 83036; 84439; 84443; 84481; 84482; 85027; 86376

== ENCOUNTER → 2025-02-15 | Outpatient (CLI) | payer BC, SELFPAY ==
--- NOTE | 2025-02-15 11:20 | RAD_ITS ---
PROCEDURE: CHEST PA AND LATERAL 02/15/2025 REASON FOR EXAM: DYSPNEA TECHNIQUE: PA and lateral chest COMPARISON: Deaf Teacher from the chest CT of 01/28/2024. FINDINGS: Lungs appear clear. No pleural effusion or pneumothorax is noted. The cardiomediastinal silhouette is within the normal range. No acute osseous process is seen. RAD/Chest PA and Lateral IMPRESSION: No evidence of acute cardiopulmonary disease. Reading Location: [id number]
[2025-02-15 12:41] LABS: Absolute Lymphocyte Count 1.72 X10^3/uL (0.83-4.51); Absolute Neutrophil Count 6.3 X10^3/uL (2.0-7.7); Basophil# 0.01 X10^3/uL; Basophil% 0.1 % (0-1); Hematocrit 45.7 % (37-47); Hemoglobin 15.3 g/dL (12.0-15.0); Lymphocyte # 1.72 X10^3/ul (0.83-4.51); Mean Corp Hgb Conc 33.5 g/dL (32-36); Mean Corpuscular Hgb 29.6 pg (27.0-32.0); Mean Corpuscular Volume 88.4 fL (81-99); Mean Platelet Vol. 12.2 fl (6.2-12.0); Monocyte# 0.52 X10^3/uL; Monocyte% 6.1 % (0-10); NRBC Flagged by Analyzer 0 % (0-5); Neutrophil % 73.5 % (47-70); Platelet Count 228 K/mm3 (150-450); RBC Distribution Width CV 13.2 % (11.6-14.6); RBC Distribution Width SD 43.2 fl (35.1-43.9); Red Blood Count 5.17 M/mm3 (4.2-5.4); White Blood Count 8.6 K/mm3 (4.4-11.0)
[2025-02-15 13:35] LABS: ALB/GLOB Ratio 1.5 RATIO (0.9-2.4); AST(SGOT) 18 U/L (<=31); Alanine Aminotransfer ALT/SGPT 17 U/L (<=34); Albumin, Serum 4.4 g/dL (3.4-4.8); Alkaline Phosphatase 73 U/L (35-104); Anion Gap 11 (5-15); BUN 14 mg/dL (4-19); Calcium,Total 9.4 mg/dL (7.6-11.0); Carbon Dioxide 23.8 mmol/L (21.0-32.0); Chloride 103 mmol/L (98-108); Creatinine, Serum 0.72 mg/dL (0.70-1.20); EST Glomerular Filtration Rate 96 (>60); Globulin 2.9 g/dL (2.2-4.2); Glucose 89 mg/dL (70-99); Protein, Total 7.3 g/dL (5.9-8.4); Sodium Level 137 mmol/L (133-145); Thyroid Stim Hormone (TSH) 0.916 uIU/mL (0.300-4.200); Total Bilirubin 0.28 mg/dL (0.00-1.30)
== END | disposition home or self-care (01) ==
PROVIDERS: PCP Nurse Practitioner Family
DX: R06.00 Dyspnea, unspecified (principal); R53.83 Other fatigue
CPT/HCPCS: 36415; 71046; 80053; 84443; 85025